=== PATIENT | female | born 2000 | race Caucasian/White ===

== ENCOUNTER 2021-10-23 20:19 | Emergency (ER) | payer OTHER, SELFPAY ==
[2021-10-23 20:26] VITALS: BP 138/80; PULSE 82; RESP 18; TEMP 36.7; O2SAT 96; BMI 20.1
--- NOTE | 2021-10-23 20:29 | DI.RAD.S_ITS ---
PROCEDURE: XR WRIST RT MIN 3V INDICATIONS: lump and pain TECHNIQUE: 4 views of the wrist were acquired. COMPARISON: None. FINDINGS: Bones: No fractures or dislocations. No suspicious bony lesions. Scaphoid view: The scaphoid appears intact. Soft tissues: No suspicious soft tissue calcifications. IMPRESSION: 1. No fracture or suspicious bony lesions. Further evaluation may be obtained with MRI if clinically indicated. Dictated by: Jimmy Marquez M.D. on 10/23/2021 at 21:18 Approved by: Jimmy Marquez M.D. on 10/23/2021 at 21:19
--- NOTE | 2021-10-23 21:44 | ED_ITS ---
HPI - Extremity Injury (Upper) General Chief Complaint: Extremity Injury, Upper Stated Complaint: Lump on wrist Time Seen by Provider: 10/23/21 21:20 Source: patient Mode of arrival: Ambulatory History of Present Illness HPI narrative: This is a healthy 21-year-old female who complains of pain in her wrist. Patient states she noticed lump in her wrist . It is painful particularly when she fully extends her wrist and it is on the palmar side. Patient does not remember any trauma or injury. She states she did have any pain or issue prior. She denies any other issues. No numbness tingling or weakness. Related Data Allergies Allergy/AdvReac Type Severity Reaction Status Date / Time No Known Drug Allergies Allergy Verified 10/23/21 20:29 Review of Systems Review of Systems ROS Unobtainable: All systems reviewed & are unremarkable except as noted in HPI and below Exam Narrative Exam Narrative: GENERAL: Alert and oriented x three, well-nourished female in mild distress. HEENT: Head normocephalic, atraumatic, EOMI, pupils reactive, face symmetric, moist mucous membranes NECK: Supple, full range of motion CARDIOVASCULAR: Regular rate and rhythm without murmurs, rubs or gallops. RESPIRATORY: Breath sounds equal bilaterally, no wheezes rales or rhonchi. ABDOMEN: Soft, nontender. Normoactive bowel sounds all 4 quadrants. No guarding or rebound, rigidity, no mass : No CVA tenderness EXTREMITIES: Normal range of motion, no clubbing or edema. Neurovascularly intact. Patient has 2+ radial pulse. She has large firm mass that is prominent when she extends at the wrist on the palmar side at the crease. This is midline without any warmth, erythema, fluctuance or other change. NEUROLOGICAL: Cranial nerves II through XII grossly intact. Moving all extremities SKIN: Warm, dry, no petechiae, no rashes or lesions. Initial Vital Signs Initial Vital Signs: Vital Signs Temperature 98.1 F 10/23/21 20:26 Pulse Rate 82 10/23/21 20:26 Respiratory Rate 18 10/23/21 20:26 Blood Pressure 138/80 10/23/21 20:26 Pulse Oximetry 96 10/23/21 20:26 Oxygen Delivery Method 10/23/21 20:26 Course Orders Ordered: ED Orders 08/14/22 20:29 XR wrist RT min 3V Stat Vital Signs Vital signs: Vital Signs - 8 hr 10/23/21 20:26 10/23/21 22:13 Temperature 98.1 F Pulse Rate 82 69 Respiratory Rate 18 18 Blood Pressure 138/80 139/85 Pulse Oximetry 96 99 Oxygen Delivery Method Room Air Room Air MDM - Extremity Injury (Upper) Imaging Data Extremity x-ray #1: Radiologist's Impression: [address] [address] XRay Report Signed Patient: Lorraine Aguirre MR#: [id number] : 2000 Acct:[id number] Age/Sex: 21 / F Date of Service: 10/23/21 Loc: ED Accession Number: [id number] ?? Procedure: XR wrist RT min 3V Ordering Provider: Kimmie Rivera D.O. PROCEDURE:? XR WRIST RT MIN 3V ? INDICATIONS: lump and pain ? TECHNIQUE:? 4 views of the wrist were acquired.? ? COMPARISON:? None. ? FINDINGS:? ? Bones:? No fractures or dislocations.? No suspicious bony lesions.? ? Scaphoid view:? The scaphoid appears intact. ? Soft tissues:? No suspicious soft tissue calcifications.? ? IMPRESSION:? ? 1. No fracture or suspicious bony lesions. ? Further evaluation may be obtained with MRI if clinically indicated. ? ? Dictated by: Jimmy Marquez M.D. on 10/23/2021 at 21:18 ? ? Approved by: Jimmy Marquez M.D. on 10/23/2021 at 21:19?? [facility] Narrative Medical decision making narrative: This is a 21-year-old female with exam consistent for ganglion cyst on her wrist. Discussed short term as well as long-term options for treatment. All questions answered plan for follow-up with primary care and/or orthopedic surgery as needed. Discharge Plan Departure Patient Disposition: Home Clinical Impression: Ganglion cyst Instructions: DI Ganglion Cyst Activity Restrictions/Additional Instructions: Please follow up with your primary care physician regarding your ganglion cyst. These will sometimes spontaneously rupture, if it is becoming larger, more painful or disrupting your life he can follow up with primary care Orthopedic surgery and sometimes they will be injected or removed but they often reoccur even afterwards. Referrals: Swati Wolff MD [Physician] - Visit Report Forms: Patient Portal/API
[2021-10-23 22:13] VITALS: BP 139/85; PULSE 69; RESP 18; O2SAT 99
== END 2021-10-23 22:13 | disposition home or self-care (01) ==
PROVIDERS: Emergency Provider Emergency Medicine
DX: M67.431 Ganglion, right wrist (principal)
CPT/HCPCS: 73110; 99281; 99283